=== PATIENT | female | born 1975 | race Two or more races ===

== ENCOUNTER → 2021-11-07 08:00 | Outpatient (CLI) | payer OTHER | END | disposition home or self-care (01) | LOC: ADM 07:30 → LAB 08:00 → CIR.AMB 11-12 07:30 → EDSTATUS 11-12 07:30 | PROVIDERS: ATTEND Obstetrics & Gynecology | DX: U07.1 COVID-19 (principal); N85.00 Endometrial hyperplasia, unspecified ==

== ENCOUNTER 2021-12-24 11:20 | Day surgery (SDC) | payer OTHER | END 2021-12-25 00:15 | disposition home or self-care (01) | LOC: CIR.AMB 11:20 | PROVIDERS: ATTEND Obstetrics & Gynecology | DX: N85.01 Benign endometrial hyperplasia (principal); Z20.822 Contact with and (suspected) exposure to COVID-19; Z86.16 Personal history of COVID-19; J32.9 Chronic sinusitis, unspecified ==